=== PATIENT | male | born 1995 | race African-American/Black ===

== ENCOUNTER 2018-06-20 10:59 | Emergency (ER) | payer MEDICAID ==
[~2018-06-20] VITALS: Ht 188 cm; Wt 93.0 kg
[2018-06-20] MEDS ORDERED: HYDROCODONE/ACETAMINOPHEN 5/325MG TABLET PO ONE (14:30)
[2018-06-20 14:37] VITALS: BP 153/81
== END 2018-06-20 14:38 | disposition home or self-care (01) ==
LOC: ER 10:59
DX: S13.4XXA Sprain of ligaments of cervical spine, initial encounter (principal); S80.02XA Contusion of left knee, initial encounter; S50.02XA Contusion of left elbow, initial encounter; F12.10 Cannabis abuse, uncomplicated; V49.09XA Driver injured in collision with other motor vehicles in nontraffic accident, initial encounter; Y93.89 Activity, other specified; Y92.89 Other specified places as the place of occurrence of the external cause; Y99.8 Other external cause status
CPT/HCPCS: 99283